=== PATIENT | female | born 1955 | race Caucasian/White ===

== ENCOUNTER 2021-03-26 02:28 | Inpatient (IN) ==
[2021-03-26] MEDS ORDERED: SODIUM CHLORIDE 0.9% 1000ML 1,000 ML IV ONE ×3 (02:51→03:59)
[2021-03-26] MEDS ORDERED: ACETAMINOPHEN 1,000 MG/100 ML VIAL IV STA (02:51)
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
[2021-03-26 03:13] LABS: Hematocrit (blood only) 47.8 % (37-47); Hemoglobin 16.3 g/dL (12.0-16.0); Immature Granulocytes # (auto) 0.01 K/uL (0.00-0.02); Immature Granulocytes % (auto) 0.1 %; Lymphocytes # (auto) 0.56 K/uL (1.2-3.4); Lymphocytes % (auto) 6.9 %; Mean Corpuscular Hemoglobin 31.4 pg (25-34); Mean Corpuscular Hgb Conc 34.1 g/dL (32-36); Mean Corpuscular Volume 92.1 fL (80-100); Mean Platelet Volume 10.2 fL (7.4-10.4); Monocytes # (auto) 0.23 K/uL (0.11-0.59); Monocytes % (auto) 2.8 %; Neutrophils # (auto) 7.33 K/uL (1.4-6.5); Neutrophils % (auto) 90.2 %; Platelet Count 186 K/uL (130-400); RDW Standard Deviation 44.1 fL (36.4-46.3); Red Blood Count 5.19 M/uL (4.2-5.4); White Blood Count 8.13 K/uL (4.8-10.8)
[2021-03-26 03:32] LABS: Alanine Aminotransferase 123 U/L (12-78); Albumin Level 3.6 gm/dl (3.4-5.0); Aspartate Aminotransferase 134 U/L (15-37); BUN Creatinine Ratio 17.6 (10-20); Bilirubin Direct 0.3 mg/dl (0-0.2); Blood Urea Nitrogen 18 mg/dl (7-18); Calcium 9.4 mg/dl (8.5-10.1); Carbon Dioxide 25 mmol/L (21-32); Chloride 101 mmol/L (98-107); Creatinine Clr Calc Pharmacy 76.6 ml/min; Est GFR (African American) 64.7 ml/min; Est GFR (Non-African American) 55.8 ml/min; Glucose 169 mg/dl (70-99); Lipase 96 U/L (73-393); Magnesium 2.2 mg/dl (1.8-2.4); Potassium 3.6 mmol/L (3.5-5.1); Sodium 134 mmol/L (136-145)
[2021-03-26 03:40] LABS: Alkaline Phosphatase 139 U/L (45-117); Bilirubin,Total 0.9 mg/dl (0.2-1); Total Protein 8.9 gm/dl (6.4-8.2); Troponin I < 0.015 ng/ml (0-0.045)
[2021-03-26] MEDS ORDERED: VANCOMYCIN HCL 2,500 MG in SODIUM CHLORIDE 0.9% 500 ML IV ONE (03:59)
[2021-03-26] MEDS ORDERED: PIPERACILLIN/TAZOBACTAM 4.5 GM/120 ML BAG IV ONE (03:59)
[2021-03-26] MEDS ORDERED: VANCOMYCIN CONSULT ACTIVE PRN ×2 (03:59→09:20)
[2021-03-26] MEDS ORDERED: PIPERACILL/TAZOBAC CONSULT ACTIVE PRN ×2 (03:59→09:20)
[2021-03-26 04:05] LABS: Lyme Ab IgG w/WB Rflx Negative (Negative); Lyme Ab IgM w/WB Rflx Negative (Negative)
[2021-03-26 04:11] LABS: Appearance Urine Cloudy (Clear); Bacteria Urine Automated Negative (Negative); Blood Urine 2+ (Negative); Color Urine Dark Yellow; Epithelial Cell Urine Auto >30 /lpf (0-5); Glucose Urine UA Negative (Negative); Ketones Urine 2+ (Negative); Leukocyte Esterase Urine Negative (Negative); Nitrite Urine Negative (Negative); Protein Urine 2+ (Negative); Specific Gravity Urine 1.031 (1.000-1.030); Urobilinogen Urine Negative (Negative); pH Urine 5.5 (4.5-7.5)
[2021-03-26 04:12] LABS: Bilirubin Urine 1+ (Negative)
[2021-03-26 04:25] LABS: Calcium Oxalate Crystals Urine Present (None Prsent); Mucus Urine Present (None Prsent)
[2021-03-26] MEDS ORDERED: OPTIRAY 320 125ml IV ONE (04:57)
--- NOTE | 2021-03-26 06:54 | History & Physical Report ---
Date of Service March 26, 2021 Assessment & Plan (1) Confusion: Plan: Confusion- Significantly improved in emergency department after 3 L of normal saline, Zosyn 4.5 g IV and beginning vancomycin IV (2) Sepsis: Plan: Sepsis, likely due to UTI- Follow urine culture sensitivities Follow blood culture and sensitivities Continue vancomycin IV and Zosyn IV empirically NSS + KCl 20 mEq 100 mils per hour x1 L Status post 3 L normal saline in the ED (3) Dehydration, moderate: Plan: IV fluids as above (4) Abnormal LFTs: Plan: CT notes hepatomegaly and splenomegaly. Differential including diabetes, obesity, hypercholesterolemia, other. No suggestion of acute hepatitis (5) Urinary tract infection: Plan: Follow urine culture and sensitivity as noted (6) Febrile illness, acute: Plan: Likely secondary to UTI. Continue to follow with hydration and antibiotics (7) Hepatomegaly: Plan: Noted on CT (8) Splenomegaly: Plan: Noted on CT History of Present Illness Chief Complaint: The patient is brought to the emergency department by police, after being found traveling [address], after she got lost en route from [place] to [place] Primary Care Provider: NO PCP The patient is a 66-year-old female with past medical history of 9 vaginal deliveries, and has not seen a physician in over 20 years. She is on no medications. She remembers traveling in the car, and thinking that she was very thirsty, and that there was ice on the other side of the car, but did not stop to get anything to drink. She is found by police traveling very slowly on the highway, appeared very confused, and was brought to the ED for assessment. In the emergency department, patient was significantly improved after receiving 3 L of normal saline, a completed dose of Zosyn, and a just beginning dose of vancomycin. She otherwise has no specific complaints other than headache. Allergies Allergy/AdvReac Type Severity Reaction Status Date / Time No Known Allergies Allergy Unverified 03/26/21 03:06 Home Medications Medication Instructions Recorded Confirmed Type ibuprofen 200 mg tablet 400 mg PO Q6H PRN 03/26/21 03/26/21 History Past Med/Surg History Social History Smoking Status: Never smoker Feels Safe at Home: Yes Review of Systems Review of Systems: The patient denies chest pain, palpitations, shortness of breath, dyspnea on exertion, cough, lower extremity swelling, sore throat, fevers, chills, sweats, weight change, fatigue, nausea, vomiting, diarrhea , constipation, abdominal pain, pelvic pain, blood in urine or stool, dysuria, urinary frequency or urgency, lightheadedness, dizziness, loss of consciousness, rash, abnormal bruising or bleeding, imbalance, focal or generalized weakness, numbness or tingling in arms or legs, generalized arthralgias or myalgias, back or neck pain, or night sweats. The review of systems is otherwise negative other than for that already noted above, and at least 10 systems have been reviewed. Physical Exam Physical Exam: The patient is awake, alert and oriented 3, well developed and well nourished, normocephalic and atraumatic, lying in bed and in no acute distress. HEENT--PERRL, EOMI, mucous membranes and oropharynx dry. Neck--supple. No JVD. No bruits. Thyroid normal, trachea midline, no adenopathy. Heart--normal S1 and S2. No murmurs, rubs or gallops. Lungs--clear bilaterally, no respiratory distress, no accessory muscle use. Abdomen--normal bowel sounds and soft. Nontender. Nondistended. Morbidly obese Extremities--no cyanosis or clubbing. No edema. Dermatologic--skin is mildly dry Neurologic--cranial nerves II through XII grossly intact. Rheumatologic-- range of motion limited by body habitus Psychiatric--normal affect. Results & Data Results & Data ([facility]) Vital Signs (Past 12 Hours) Vital Signs Temp Pulse Pulse Resp BP BP Pulse Ox 03/26/21 06:00 102 H 18 185/108 H 92 03/26/21 05:00 102 H 20 157/90 H 99 03/26/21 03:58 100.8 F H 112 H 18 163/98 H 94 03/26/21 02:44 103.3 F H 113 H 171/139 H 94 Laboratory Results Laboratory Results WBC 8.13 K/uL (4.8-10.8) 03/26/21 02:58 RBC 5.19 M/uL (4.2-5.4) 03/26/21 02:58 Hgb 16.3 g/dL (12.0-16.0) H 03/26/21 02:58 Hct 47.8 % (37-47) H 03/26/21 02:58 MCV 92.1 fL (80-100) 03/26/21 02:58 MCH 31.4 pg (25-34) 03/26/21 02:58 MCHC 34.1 g/dL (32-36) 03/26/21 02:58 RDW Std Deviation 44.1 fL (36.4-46.3) 03/26/21 02:58 RDW Coeff of Bharti 13.0 % (11.5-14.5) 03/26/21 02:58 Plt Count 186 K/uL (130-400) 03/26/21 02:58 MPV 10.2 fL (7.4-10.4) 03/26/21 02:58 Immature Gran % (Auto) 0.1 % 03/26/21 02:58 Neut % (Auto) 90.2 % 03/26/21 02:58 Lymph % (Auto) 6.9 % 03/26/21 02:58 Faulk % (Auto) 2.8 % 03/26/21 02:58 Eos % (Auto) 0.0 % 03/26/21 02:58 Baso % (Auto) 0.0 % 03/26/21 02:58 Neut # (Auto) 7.33 K/uL (1.4-6.5) H 03/26/21 02:58 Lymph # (Auto) 0.56 K/uL (1.2-3.4) L 03/26/21 02:58 Faulk # (Auto) 0.23 K/uL (0.11-0.59) 03/26/21 02:58 Eos # (Auto) 0.00 K/uL (0-0.5) 03/26/21 02:58 Baso # (Auto) 0.00 K/uL (0-0.2) 03/26/21 02:58 Immature Gran # (Auto) 0.01 K/uL (0.00-0.02) 03/26/21 02:58 Sodium 134 mmol/L (136-145) L 03/26/21 02:58 Potassium 3.6 mmol/L (3.5-5.1) 03/26/21 02:58 Chloride 101 mmol/L (98-107) 03/26/21 02:58 Carbon Dioxide 25 mmol/L (21-32) 03/26/21 02:58 Anion Gap 8.0 (3-11) 03/26/21 02:58 BUN 18 mg/dl (7-18) 03/26/21 02:58 Creatinine 1.03 mg/dl (0.6-1.2) 03/26/21 02:58 Est Cr Clr Drug Dosing 76.6 ml/min 03/26/21 02:58 Est GFR ( Amer) 64.7 ml/min 03/26/21 02:58 Est GFR (Non-Af Amer) 55.8 ml/min 03/26/21 02:58 BUN/Creatinine Ratio 17.6 (10-20) 03/26/21 02:58 Glucose 169 mg/dl (70-99) H 03/26/21 02:58 Lactate 1.9 mmol/L (0.4-2.0) 03/26/21 02:58 Calcium 9.4 mg/dl (8.5-10.1) 03/26/21 02:58 Magnesium 2.2 mg/dl (1.8-2.4) 03/26/21 02:58 Total Bilirubin 0.9 mg/dl (0.2-1) 03/26/21 02:58 Direct Bilirubin 0.3 mg/dl (0-0.2) H 03/26/21 02:58 AST 134 U/L (15-37) H 03/26/21 02:58 ALT 123 U/L (12-78) H 03/26/21 02:58 Alkaline Phosphatase 139 U/L (45-117) H 03/26/21 02:58 Troponin I < 0.015 ng/ml (0-0.045) 03/26/21 02:58 C-Reactive Protein 21.90 mg/dl (0-0.29) H 03/26/21 02:58 Total Protein 8.9 gm/dl (6.4-8.2) H 03/26/21 02:58 Albumin 3.6 gm/dl (3.4-5.0) 03/26/21 02:58 Lipase 96 U/L (73-393) 03/26/21 02:58 Procalcitonin 1.32 ng/ml (0-0.5) H 03/26/21 02:58 Urine Color Dark Yellow 03/26/21 03:55 Urine Appearance Cloudy (Clear) A 03/26/21 03:55 Urine pH 5.5 (4.5-7.5) 03/26/21 03:55 Ur Specific Rollins 1.031 (1.000-1.030) H 03/26/21 03:55 Urine Protein 2+ (Negative) H 03/26/21 03:55 Urine Glucose (UA) Negative (Negative) 03/26/21 03:55 Urine Ketones 2+ (Negative) H 03/26/21 03:55 Urine Blood 2+ (Negative) H 03/26/21 03:55 Urine Nitrite Negative (Negative) 03/26/21 03:55 Urine Bilirubin 1+ (Negative) H 03/26/21 03:55 Urine Urobilinogen Negative (Negative) 03/26/21 03:55 Ur Leukocyte Esterase Negative (Negative) 03/26/21 03:55 Urine WBC (Auto) 5-10 /hpf (0-5) H 03/26/21 03:55 Urine RBC (Auto) 5-10 /hpf (0-4) H 03/26/21 03:55 U Hyaline Cast (Auto) 10-30 /lpf (0-5) H 03/26/21 03:55 U Epithel Cells (Auto) >30 /lpf (0-5) H 03/26/21 03:55 Urine Bacteria (Auto) Negative (Negative) 03/26/21 03:55 Ur Renal Epithelial Cell Not Reportable 03/26/21 03:55 Calcium Oxalate Crystal Present (None Prsent) A 03/26/21 03:55 Granular Casts 1-5 /lpf (0) H 03/26/21 03:55 Urine Mucus Present (None Prsent) A 03/26/21 03:55 Anaplasma Smear See Comment 03/26/21 02:58 Lyme Disease IgG Ab Negative (Negative) 03/26/21 02:58 Lyme Disease IgM Ab Negative (Negative) 03/26/21 02:58 COVID-19 Eval Order Covid19 at [facility] 03/26/21 03:13 SARS-CoV-2 (PCR) NEGATIVE (Negative) 03/26/21 03:13 Diagnostic Findings [facility] Patient: NBA ROSA (Female) : 51 Status: ER Date: 03/26/21 04:57 Room #: History: ELEVATED LFT'S SEPSIS Slices: 1005 Priors: Tech: Claudio Wright @ [phone] Exams: CT ABDOMEN & PELVIS With Contrast Contrast: IV Amt: 119 ML OPTIRAY 320 Accession Numbers: [id number] Referring Physician: REFERRED SELF Preliminary Findings Only See Final Report For Complete Findings CT ABDOMEN & PELVIS With Contrast: Hepatomegaly. Cholecystectomy. Pancreas unremarkable. Splenomegaly. No renal or ureteral stones. Status post hysterectomy. No acute abnormality along the GI tract. Normal appendix. Colonic diverticulosis without diverticulitis. Fat-containing umbilical hernia. Radiologist: Sav Castillo MD Study ready at 05:07 and initial results transmitted at 06:07 *This report constitutes a preliminary interpretation only. Non-acute findings felt to be unrelated to the clinical presentation may not be discussed in this report. The study will be interpreted and a final report will be generated by the local Radiologist the following shift. To reach the hospital radiology department call [phone]. If a discrepancy is found between the preliminary and final interpretations of this study, please notify us via our Client Portal at [email or web address], under QA Exams.You can also fax this report with a description of the discrepancy, or include the final report, to our daytime fax number [phone].If faxing, please indicate the severity of discrepancy using one of the following categories: [ ] 1 - Agree/Informational [ ] 2 - Unlikely to Affect Management [ ] 3 - Possible Eventual Change of Management [ ] 4 - Probable Immediate Change of Management For all other patient related information, please fax us at [phone]. [id number] Code Status & VTE Plan Code Status Full code VTE Prophylaxis Plan VTE Prophylaxis will be ordered: Yes PG Care Time/CCT Total # of Minutes Spent Total Time Spent with Patient: Total time spent is greater than 50% in coordination of care (as documented) at patient's floor/unit and/or counseling patient: Coding Level of Care Code 59222 Initial Inpt Care Lvl 3 Diagnoses Confusion R41.0 Sepsis A41.9 Dehydration, moderate E86.0 Abnormal LFTs R94.5 Urinary tract infection N39.0 Febrile illness, acute R50.9 Hepatomegaly R16.0 Splenomegaly R16.1
--- NOTE | 2021-03-26 07:39 | CT Scan Report ---
CT OF THE HEAD WITHOUT CONTRAST CLINICAL HISTORY: Confusion. COMPARISON STUDY: No previous studies for comparison. CT DOSE: 614.27 mGy.cm TECHNIQUE: Helical axial images of the head were obtained without IV contrast. Automated exposure con trol was utilized for the study. A dose lowering technique was utilized adhering to the principles o f ALARA. FINDINGS: No acute intracranial hemorrhage, midline shift or mass effect is present. Ventricular syst em is normal. Basal cisterns are patent. There are no extra-axial collections. Several white matter h ypodensity suggests small vessel disease. There are no findings to suggest acute dural sinus thrombos is or acute territorial infarct. There are no significant calvarial abnormalities. There is a small a mount of fluid within the right mastoid air cells. IMPRESSION: No acute intracranial findings. ACT 112: Negative or not required by law. Electronically signed by: Lacho Higginbotham M.D. 03/26/2021 7:38 AM
--- NOTE | 2021-03-26 08:48 | Electrocardiogram Report ---
Test Reason : Blood Pressure : / mmHG Vent. Rate : 126 BPM Atrial Rate : 126 BPM P-R Int : 152 ms QRS Dur : 094 ms QT Int : 314 ms P-R-T Axes : 048 168 011 degrees QTc Int : 454 ms Poor data quality, interpretation may be adversely affected Sinus tachycardia Left atrial enlargement Right axis deviation Nonspecific T wave abnormality Inferior leads Abnormal ECG No previous ECGs available Confirmed by Devante Wheeler ([id number]) on 03/26/2021 8:47:45 AM Referred By: REFERRED SELF Confirmed By:Devante Wheeler
[2021-03-26] MEDS ORDERED: GLUCOSE 10 TABS/TUBE PO PRN (09:20)
[2021-03-26] MEDS ORDERED: DEXTROSE 50% 50 ML SYRINGE IV PRN (09:20)
[2021-03-26] MEDS ORDERED: ONDANSETRON INJ 2 MG/ML 2 ML VIAL IV PRN (09:20)
[2021-03-26] MEDS ORDERED: GLUCAGON FOR INJ 1 MG VIAL SQ PRN (09:20)
[2021-03-26] MEDS ORDERED: GLUCOSE 40% GEL 15 GM TUBE PO PRN (09:20)
[2021-03-26] MEDS ORDERED: CARBOHYDRATES FOR HYPOGLYCEMIA PO PRN (09:20)
--- NOTE | 2021-03-26 09:32 | XRay Report ---
XR chest 1V portable CLINICAL HISTORY: sepsis COMPARISON STUDY: No previous studies for comparison. FINDINGS: No pneumothorax. No pleural effusion. Reticular opacities are seen at the right lower lung and could represent atelectasis or infiltrates. Cardiomediastinal silhouette is within normal limits in size. Mild pulmonary vascular congestion. Aorta is tortuous.. Osseous structures: Osteopenia. Degenerative changes of bilateral shoulders and spine. IMPRESSION: 1. Atelectasis or infiltrate at the right lower lung. 2. Mild pulmonary vascular congestion. ACT 112: Negative or not required by law. The above report was generated using voice recognition software. It may contain grammatical, syntax o r spelling errors. Electronically signed by: Mala Adame DO 03/26/2021 9:30 AM
--- NOTE | 2021-03-26 09:41 | CT Scan Report ---
CT abd pelvis IV con only CLINICAL HISTORY: sepsis, elevated LFTs COMPARISON STUDY: None. TECHNIQUE: A dose lowering technique was utilized adhering to the principles of ALARA. CT DOSE: 2486.86 mGy.cm FINDINGS: Lower chest: Few linear densities are seen at dependent portions of bilateral lower lobes and could r epresent atelectasis or scarring.. Liver: Liver is prominent with diffuse decrease in attenuation of its parenchyma which could represen t hepatic steatosis. No focal liver lesions or intrahepatic biliary dilatation is seen Gallbladder: Is surgically absent. Spleen: Normal in size and attenuation. Pancreas: Unremarkable. Adrenal glands: Unremarkable. Kidneys: There is symmetric renal cortical enhancement. The kidneys are normal in size without hydron ephrosis.Few small renal cysts are seen within left kidney. Pelvic viscera: Urinary bladder is partially decompressed shows normal appearance. Uterus is surgical ly absent. Bowel: Bowel loops are nondilated. Appendix is not well seen, probably surgically absent. Diverticulo sis of sigmoid colon is seen without evidence of diverticulitis. Peritoneum: There is no intraperitoneal free air or abdominal ascites. Vasculature: The abdominal aorta is normal in course and caliber. Adenopathy: None. Skeletal structures: Mild osteopenia and degenerative changes of the spine. Mild anterolisthesis of L 4 on L5. IMPRESSION: 1. Hepatic steatosis. Prominent liver. 2. Nondilated loops of bowel. No acute intra-abdominal process. 3. Diverticulosis without diverticulitis. 4. Status post cholecystectomy and hysterectomy. ACT 112: Negative or not required by law. The above report was generated using voice recognition software. It may contain grammatical, syntax o r spelling errors. Electronically signed by: Mala Adame DO 03/26/2021 9:39 AM
[2021-03-26] MEDS ORDERED: NSS + 20MEQ KCL 20 MEQ/1,000 ML BAG IV SCH (09:45)
--- NOTE | 2021-03-26 10:27 | Pharmacy Report ---
Pharmacy Abx Dose Short Note - Date of Service March 26, 2021 - Assessment & Plan Assessment 66 year old F started on vancomycin and zosyn empirically for confusion/possible UTI. Per notes, patient has not been seen by PCP in over 20 years, no medications at home. Found very confused on admission, improving after given fluids in ER. Febrile on admission and elevated procalcitonin noted. Cultures pending currently. Plan Vancomycin * Vancomycin 2500 mg x 1 given in ER (~18 mg/kg/dose) * Plan to start vancomycin 1500 mg iv q 12 hr to achieve estimated trough ~15 mcg/ml (~10 mg/kg/dose). A less than traditional dosing selected due to increased risk of accumulation with vancomycin d/t BMI >35 kg/m2 * Plan to check trough likely before steady state to ensure stable Zosyn * 4.5 gm iv q 8 hr - no change for CrCl >20 Pharmacy will continue to follow and will adjust dose/frequency as necessary. Thank you.
[2021-03-26] MEDS: PIPERACILLIN/TAZOBACTAM 4.5 GM in DEXTROSE 5% 100 ML IV SCH ×2 (10:35→18:12)
[2021-03-26] MEDS: INSULIN ASPART 100 UNITS/ML 3 ML PEN SC SCH ×4 (10:39→20:30)
[2021-03-26] MEDS: ACETAMINOPHEN 325 MG TAB PO PRN (13:19)
[2021-03-26] MEDS: VANCOMYCIN HCL 1,500 MG in SODIUM CHLORIDE 0.9% 500 ML IV SCH (16:30)
[2021-03-27] MEDS: PIPERACILLIN/TAZOBACTAM 4.5 GM in DEXTROSE 5% 100 ML IV SCH ×3 (01:09→18:17)
[2021-03-27] MEDS: VANCOMYCIN HCL 1,500 MG in SODIUM CHLORIDE 0.9% 500 ML IV SCH ×2 (04:04→16:42)
[2021-03-27 07:59] LABS: Estimated Average Glucose 117 mg/dl; Hemoglobin A1C 5.7 % (4.5-5.6)
[2021-03-27 08:04] LABS: Basophils # (auto) 0.02 K/uL (0-0.2); Basophils % (auto) 0.5 %; Eosinophils # (auto) 0.03 K/uL (0-0.5); Eosinophils % (auto) 0.8 %; Hematocrit (blood only) 37.7 % (37-47); Hemoglobin 12.6 g/dL (12.0-16.0); Lymphocytes # (auto) 1.27 K/uL (1.2-3.4); Lymphocytes % (auto) 32.1 %; Mean Corpuscular Hemoglobin 30.7 pg (25-34); Mean Corpuscular Hgb Conc 33.4 g/dL (32-36); Mean Platelet Volume 10.2 fL (7.4-10.4); Monocytes % (auto) 15.2 %; Neutrophils # (auto) 2.04 K/uL (1.4-6.5); Neutrophils % (auto) 51.4 %; Platelet Count 167 K/uL (130-400); RDW Coefficient of Variation 13.3 % (11.5-14.5); RDW Standard Deviation 45.2 fL (36.4-46.3); White Blood Count 3.96 K/uL (4.8-10.8)
[2021-03-27] MEDS: INSULIN ASPART 100 UNITS/ML 3 ML PEN SC SCH ×4 (08:05→20:27)
[2021-03-27 08:07] LABS: Albumin Level 2.6 gm/dl (3.4-5.0); BUN Creatinine Ratio 18.8 (10-20); Calcium 8.2 mg/dl (8.5-10.1); Creatinine Clr Calc Pharmacy 139.6 ml/min; Est GFR (African American) 111.7 ml/min; Est GFR (Non-African American) 96.4 ml/min; Magnesium 2.2 mg/dl (1.8-2.4); Potassium 2.9 mmol/L (3.5-5.1)
[2021-03-27 08:12] LABS: Albumin Globulin Ratio 0.7 (0.9-2); Bilirubin,Total 0.8 mg/dl (0.2-1); Globulin 3.8 gm/dl (2.5-4.0); Total Protein 6.4 gm/dl (6.4-8.2)
[2021-03-27] MEDS: POTASSIUM CHLORIDE / WTR 10 MEQ/100 ML PLCT IV SCH ×4 (09:24→13:34)
[2021-03-27] MEDS ORDERED: VANCOMYCIN TROUGH ONE (15:30)
--- NOTE | 2021-03-27 15:49 | Hospitalist Progress Note ---
Date of Service March 27, 2021 Assessment & Plan (1) Confusion: Plan: Confusion- She can remember that she was traveling in [place] and was heading to [place] the evening before admission and after that she cannot remember anything that she was taken to the hospital but he can remember the conversation with the police. She has been on intravenous fluid and intravenous Zosyn and vancomycin for possible infection UA is suggestive of infection CT of the head has been negative Her confusion seems to be completely resolved (2) Sepsis: Plan: Possible sepsis, likely secondary to UTI Did not meet all the criteria of sepsis Received adequate intravenous fluid Urine and blood cultures are pending She has been on intravenous Zosyn and vancomycin empirically We will continue both until you get the blood culture report back Clinically much better (3) Dehydration, moderate: Plan: IV fluids as above Received intravenous fluid with electrolyte replacement Potassium remains low and is supplemented Monitor PRP and electrolytes (4) Abnormal LFTs: Plan: CT notes hepatomegaly and splenomegaly. Differential including diabetes, obesity, hypercholesterolemia, other. No suggestion of acute hepatitis Likely secondary to hepatic steatosis We will monitor LFTs (5) Urinary tract infection: Plan: Follow urine culture and sensitivity as noted (6) Febrile illness, acute: Plan: Likely secondary to UTI. Continue to follow with hydration and antibiotics (7) Hepatomegaly: Plan: Noted on CT (8) Splenomegaly: Plan: Noted on CT Plan: We will get PT and OT evaluation Await urine and blood cultures determine the antibiotic and the duration Like to be discharged tomorrow or day after We will have [facility] PCP for follow-up at discharge Admission and Anticipated Discharge Date Admission Date: March 26, 2021 Subjective 03/27/2021 The patient was seen and examined in telemetry unit She was admitted yesterday with acute confusion and noted to have UTI She has been feeling much better since admission and her confusion is resolved Denies any significant symptoms today Review of Systems Review of Systems: All systems reviewed and are unremarkable except as noted below Neurologic: Alert, awake and oriented x3. Generally weak but no focal sensory and motor deficit appreciated Physical Exam Physical Exam: Sitting at the edge of the bed without any distress Constitutional: well developed, well nourished and + obese; not ill appearing Eyes: PERRL, conjunctivae normal, anicteric sclerae ENMT: external ear and nose normal, oropharynx normal Neck: trachea midline, no thyromegaly Respiratory: no respiratory distress and no cough Auscultation: lungs clear to auscultation bilaterally Cardiovascular: Rate/Rhythm: regular rate and regular rhythm; not tachycardic Heart Sounds: normal S1 and normal S2; no murmur Extremities: + edema (Chronic edema bilaterally with component of lymphedema) Gastrointestinal (Abdomen): normal bowel sounds, soft, nontender, no hepatosplenomegaly Musculoskeletal: No acute arthritis in any joint Neurologic: Alert, awake and oriented x3 Psychiatric: A+Ox3, euthymic affect Lymphatic: no cervical or axillary lymphadenopathy Results & Data Results & Data ([facility]) Vital Signs (Past 12 Hours) Vital Signs Temp Pulse Resp BP Pulse Ox 03/27/21 15:09 36.6 C 75 17 159/93 H 94 03/27/21 11:42 36.6 C 78 20 163/86 H 94 03/27/21 07:27 36.7 C 74 20 148/86 H 93 Laboratory Results Short CBC 03/27/21 Range/Units 06:51 WBC 3.96 L (4.8-10.8) K/uL Hgb 12.6 D (12.0-16.0) g/dL Hct 37.7 (37-47) % Plt Count 167 (130-400) K/uL BMP 03/27/21 06:51 Sodium 139 Potassium 2.9 L D Chloride 108 H Carbon Dioxide 25 BUN 10 D Creatinine 0.55 L D Glucose 116 H Calcium 8.2 L Cardiac Enzymes 03/26/21 03/27/21 03/27/21 Range/Units 17:55 01:06 09:58 Troponin I < 0.015 < 0.015 < 0.015 (0-0.045) ng/ml Liver Function 03/27/21 Range/Units 06:51 Total Bilirubin 0.8 (0.2-1) mg/dl AST 84 H (15-37) U/L ALT 93 H (12-78) U/L Alkaline Phosphatase 98 (45-117) U/L Albumin 2.6 L (3.4-5.0) gm/dl Medications Administered Current Inpatient Medications Acetaminophen (Acetaminophen 325 Mg Tab) 650 mg PO Q4H PRN PRN Reason: Pain or Fever Stop: 04/25/21 09:19 Last Admin: 03/26/21 13:19 Dose: 650 mg Documented by: Dextrose (Dextrose 50% 50 Ml Syringe) 25 - 50 ml IV UD PRN; Protocol PRN Reason: Hypoglycemia Protocol Stop: 04/25/21 09:19 Glucagon (Glucagon For Inj 1 Mg Vial) 1 mg SQ UD PRN; Protocol PRN Reason: Hypoglycemia Protocol Stop: 04/25/21 09:19 Glucose (Glucose 10 Tabs/Tube) 4 - 8 tabs PO UD PRN; Protocol PRN Reason: Hypoglycemia Protocol Stop: 04/25/21 09:19 Glucose (Glucose 40% Gel 15 Gm Tube) 15 - 30 gm PO UD PRN; Protocol PRN Reason: Hypoglycemia Protocol Stop: 04/25/21 09:19 Vancomycin HCl 1,500 mg/ (Sodium Chloride) 530 mls @ 200 mls/hr IV Q12H BEHZAD Stop: 03/28/21 15:59 Last Infusion: 03/27/21 08:20 Dose: Infused Documented by: Piperacillin Sod/Tazobactam (Sod 4.5 gm/ Dextrose) 120 mls @ 30 mls/hr IV Q8H BEHZAD; Protocol Stop: 03/28/21 10:29 Last Infusion: 03/27/21 13:34 Dose: Infused Documented by: Insulin Aspart (Insulin Aspart 100 Units/Ml 3 Ml Pen) 0 units SC ACHS BEHZAD Stop: 04/25/21 09:19 Last Admin: 03/27/21 11:59 Dose: Not Given Documented by: Miscellaneous (Carbohydrates For Hypoglycemia ) 15 - 30 gm PO UD PRN PRN Reason: Hypoglycemia Protocol Stop: 04/25/21 09:19 Miscellaneous Information (Piperacill/Tazobac Consult Active) 1 ea N/A UD PRN PRN Reason: Consult Stop: 04/25/21 09:19 Miscellaneous Information (Vancomycin Consult Active) 1 ea N/A UD PRN PRN Reason: Consult Stop: 04/25/21 09:19 Ondansetron HCl (Ondansetron Inj 2 Mg/Ml 2 Ml Vial) 4 mg IV Q6H PRN PRN Reason: Nausea Stop: 04/25/21 09:19
--- NOTE | 2021-03-27 20:48 | Pharmacy Report ---
Pharmacy Abx Dose Short Note - Date of Service March 27, 2021 - Assessment & Plan Assessment 66 year old F receiving vancomycin and zosyn for treatment of confusion/possible UTI Day # 2 of antimicrobial therapy. Plan Vancomycin * Trough level of 12 mcg/mL is subtherapeutic * Change to 1500 mg IV every 10 hours * Goal trough level: 15 to 20 mcg/mL * Trough level will be ordered if vancomycin is continued past 48 hours Zosyn * 4.5 gm iv q 8 hr - no change for CrCl >20 Pharmacy will continue to follow and will adjust dose/frequency as necessary. Thank you.
[2021-03-28] MEDS ORDERED: VANCOMYCIN HCL 1,500 MG in SODIUM CHLORIDE 0.9% 500 ML IV SCH
[2021-03-28] MEDS: PIPERACILLIN/TAZOBACTAM 4.5 GM in DEXTROSE 5% 100 ML IV SCH ×3 (00:59→17:26)
[2021-03-28] MEDS: VANCOMYCIN HCL 1,500 MG in SODIUM CHLORIDE 0.9% 500 ML IV SCH ×3 (00:59→21:20)
[2021-03-28 07:33] LABS: Hematocrit (blood only) 39.5 % (37-47); Hemoglobin 13.4 g/dL (12.0-16.0); Mean Corpuscular Hemoglobin 30.7 pg (25-34); Mean Corpuscular Hgb Conc 33.9 g/dL (32-36); Mean Corpuscular Volume 90.4 fL (80-100); Mean Platelet Volume 10.2 fL (7.4-10.4); Platelet Count 207 K/uL (130-400); RDW Coefficient of Variation 12.9 % (11.5-14.5); Red Blood Count 4.37 M/uL (4.2-5.4); White Blood Count 3.96 K/uL (4.8-10.8)
[2021-03-28 08:02] LABS: Basophils # (auto) 0.02 K/uL (0-0.2); Basophils % (auto) 0.5 %; Eosinophils # (auto) 0.09 K/uL (0-0.5); Eosinophils % (auto) 2.3 %; Lymphocytes # (auto) 1.99 K/uL (1.2-3.4); Lymphocytes % (auto) 50.3 %; Monocytes # (auto) 0.53 K/uL (0.11-0.59); Monocytes % (auto) 13.4 %; Neutrophils # (auto) 1.33 K/uL (1.4-6.5); Neutrophils % (auto) 33.5 %
[2021-03-28 08:11] LABS: Albumin Level 2.8 gm/dl (3.4-5.0); BUN Creatinine Ratio 17.7 (10-20); Calcium 8.7 mg/dl (8.5-10.1); Creatinine Clr Calc Pharmacy 134.8 ml/min; Est GFR (African American) 110.4 ml/min; Est GFR (Non-African American) 95.3 ml/min; Magnesium 2.1 mg/dl (1.8-2.4); Potassium 3.3 mmol/L (3.5-5.1)
[2021-03-28 08:14] LABS: Albumin Globulin Ratio 0.7 (0.9-2); Bilirubin,Total 0.7 mg/dl (0.2-1); Globulin 4.2 gm/dl (2.5-4.0); Phosphorus 2.9 mg/dl (2.5-4.9)
[2021-03-28] MEDS: INSULIN ASPART 100 UNITS/ML 3 ML PEN SC SCH ×4 (08:14→21:14)
[2021-03-28] MEDS ORDERED: POTASSIUM CHLORIDE CRTAB 20 MEQ TABCR PO STA (09:13)
[2021-03-28] MEDS ORDERED: POTASSIUM CHLORIDE 10 MEQ TABCR PO STA (09:13)
--- NOTE | 2021-03-28 16:21 | Hospitalist Progress Note ---
Date of Service March 28, 2021 Assessment & Plan (1) Confusion: Plan: Confusion- She can remember that she was traveling [place] 81 and was heading [place] 80 the evening before admission and after that she cannot remember anything that she was taken to the hospital but he can remember the conversation with the police. She has been on intravenous fluid and intravenous Zosyn and vancomycin for possible infection UA is suggestive of infection CT of the head has been negative Her confusion seems to be completely resolved (2) Sepsis: Plan: Possible sepsis, likely secondary to UTI Did not meet all the criteria of sepsis Received adequate intravenous fluid Urine and blood cultures are pending She has been on intravenous Zosyn and vancomycin empirically We will continue both until you get the blood culture report back Clinically much better (3) Dehydration, moderate: Plan: IV fluids as above Received intravenous fluid with electrolyte replacement Potassium remains low and is supplemented Monitor PRP and electrolytes (4) Abnormal LFTs: Plan: CT notes hepatomegaly and splenomegaly. Differential including diabetes, obesity, hypercholesterolemia, other. No suggestion of acute hepatitis Likely secondary to hepatic steatosis We will monitor LFTs (5) Urinary tract infection: Plan: Follow urine culture and sensitivity as noted (6) Febrile illness, acute: Plan: Likely secondary to UTI. Continue to follow with hydration and antibiotics (7) Hepatomegaly: Plan: Noted on CT (8) Splenomegaly: Plan: Noted on CT Plan: We will get PT and OT evaluation Await urine and blood cultures determine the antibiotic and the duration Like to be discharged tomorrow or day after We will have [facility] PCP for follow-up at discharge Admission and Anticipated Discharge Date Admission Date: March 26, 2021 Subjective Pt was seen and examined Lying in bed with no distress Denies any chest pain, palpitation, dizziness and fever Physical Exam Physical Exam: Physical Exam: Sitting at the edge of the bed without any distress Constitutional: well developed, well nourished and + obese; not ill appearing Eyes: PERRL, conjunctivae normal, anicteric sclerae ENMT: external ear and nose normal, oropharynx normal Neck: trachea midline, no thyromegaly Respiratory: no respiratory distress and no cough Auscultation: lungs clear to auscultation bilaterally Cardiovascular: Rate/Rhythm: regular rate and regular rhythm; not tachycardic Heart Sounds: normal S1 and normal S2; no murmur Extremities: + edema (Chronic edema bilaterally with component of lymphedema) Gastrointestinal (Abdomen): normal bowel sounds, soft, nontender, no hepatosplenomegaly Musculoskeletal: No acute arthritis in any joint Neurologic: Alert, awake and oriented x3 Psychiatric: A+Ox3, euthymic affect Lymphatic: no cervical or axillary lymphadenopathy Results & Data Results & Data ([facility]) Vital Signs (Past 12 Hours) Vital Signs Temp Pulse Resp BP Pulse Ox 03/28/21 15:05 36.6 C 72 18 166/102 H 94 03/28/21 11:40 36.6 C 73 18 167/103 H 95 03/28/21 07:50 36.8 C 73 20 185/90 H 93
[2021-03-28] MEDS: ACETAMINOPHEN 325 MG TAB PO PRN (21:19)
[2021-03-29] MEDS: PIPERACILLIN/TAZOBACTAM 4.5 GM in DEXTROSE 5% 100 ML IV SCH ×2 (02:07→08:59)
[2021-03-29] MEDS ORDERED: VANCOMYCIN TROUGH ONE (07:30)
[2021-03-29 07:36] LABS: Basophils # (auto) 0.02 K/uL (0-0.2); Basophils % (auto) 0.4 %; Eosinophils # (auto) 0.14 K/uL (0-0.5); Hematocrit (blood only) 38.6 % (37-47); Hemoglobin 12.9 g/dL (12.0-16.0); Immature Granulocytes # (auto) 0.01 K/uL (0.00-0.02); Immature Granulocytes % (auto) 0.2 %; Lymphocytes # (auto) 1.94 K/uL (1.2-3.4); Lymphocytes % (auto) 41.1 %; Mean Corpuscular Hemoglobin 30.2 pg (25-34); Mean Corpuscular Hgb Conc 33.4 g/dL (32-36); Mean Corpuscular Volume 90.4 fL (80-100); Mean Platelet Volume 9.8 fL (7.4-10.4); Monocytes # (auto) 0.45 K/uL (0.11-0.59); Monocytes % (auto) 9.5 %; Neutrophils # (auto) 2.16 K/uL (1.4-6.5); Neutrophils % (auto) 45.8 %; Platelet Count 246 K/uL (130-400); RDW Standard Deviation 42.9 fL (36.4-46.3); Red Blood Count 4.27 M/uL (4.2-5.4); White Blood Count 4.72 K/uL (4.8-10.8)
[2021-03-29 08:37] LABS: Albumin Globulin Ratio 0.8 (0.9-2); BUN Creatinine Ratio 18.3 (10-20); Bilirubin,Total 0.7 mg/dl (0.2-1); Calcium 8.7 mg/dl (8.5-10.1); Creatinine Clr Calc Pharmacy 137.1 ml/min; Est GFR (Non-African American) 95.8 ml/min; Globulin 3.8 gm/dl (2.5-4.0); Magnesium 2.1 mg/dl (1.8-2.4); Potassium 3.2 mmol/L (3.5-5.1); Total Protein 6.8 gm/dl (6.4-8.2)
[2021-03-29] MEDS: INSULIN ASPART 100 UNITS/ML 3 ML PEN SC SCH ×4 (08:59→21:23)
[2021-03-29] MEDS: VANCOMYCIN HCL 1,500 MG in SODIUM CHLORIDE 0.9% 500 ML IV SCH ×2 (09:03→17:43)
[2021-03-29] MEDS ORDERED: POTASSIUM CHLORIDE CRTAB 20 MEQ TABCR PO STA (09:30)
--- NOTE | 2021-03-29 12:26 | Pharmacy Report ---
Pharmacy Abx Dose Short Note - Date of Service March 29, 2021 - Assessment & Plan Assessment 66 year old F receiving vancomycin for treatment of possible gram-positive cocci bacteremia (vs. contamination). Pertinent microbiologic data includes: 1 of 4 blood cultures currently growing gram-positive cocci in clusters. ID consulted yesterday - awaiting recs. Zosyn discontinued in meantime, vancomycin monotherapy at this time. Day #4 of antimicrobial therapy. Plan Vancomycin * Trough level of 17.5 mcg/mL is therapeutic * Continue dose of 1500 mg IV every 10 hours * Goal trough level for bacteremia (unknown source) : 15 to 20 mcg/mL * Trough level ordered for: 03/31/21 Pharmacy will continue to follow and will adjust dose/frequency as necessary. Thank you.
--- NOTE | 2021-03-29 19:38 | Hospitalist Progress Note ---
Date of Service March 29, 2021 Assessment & Plan (1) Confusion: Plan: Confusion- She can remember that she was traveling in 81 and was heading to 80 the evening before admission and after that she cannot remember anything that she was taken to the hospital but he can remember the conversation with the police. She has been on intravenous fluid and intravenous Zosyn and vancomycin for possible infection UA is suggestive of infection CT of the head has been negative Her confusion seems to be completely resolved (2) Sepsis: Plan: Possible sepsis, likely secondary to UTI Did not meet all the criteria of sepsis Received adequate intravenous fluid Urine and blood cultures are pending She has been on intravenous Zosyn and vancomycin empirically We will continue both until you get the blood culture report back Clinically much better (3) Dehydration, moderate: Plan: IV fluids as above Received intravenous fluid with electrolyte replacement Potassium remains low and is supplemented Monitor PRP and electrolytes (4) Abnormal LFTs: Plan: CT notes hepatomegaly and splenomegaly. Differential including diabetes, obesity, hypercholesterolemia, other. No suggestion of acute hepatitis Likely secondary to hepatic steatosis We will monitor LFTs (5) Urinary tract infection: Plan: Follow urine culture and sensitivity as noted (6) Febrile illness, acute: Plan: Likely secondary to UTI. Continue to follow with hydration and antibiotics (7) Hepatomegaly: Plan: Noted on CT (8) Splenomegaly: Plan: Noted on CT Plan: We will get PT and OT evaluation Await urine and blood cultures determine the antibiotic and the duration Like to be discharged tomorrow or day after We will have [facility] PCP for follow-up at discharge Admission and Anticipated Discharge Date Admission Date: March 26, 2021 Subjective Pt was seen and examined Lying in bed with no distress Denies any chest pain, palpitation, dizziness and fever Physical Exam Physical Exam: Physical Exam: Sitting at the edge of the bed without any distress Constitutional: well developed, well nourished and + obese; not ill appearing Eyes: PERRL, conjunctivae normal, anicteric sclerae ENMT: external ear and nose normal, oropharynx normal Neck: trachea midline, no thyromegaly Respiratory: no respiratory distress and no cough Auscultation: lungs clear to auscultation bilaterally Cardiovascular: Rate/Rhythm: regular rate and regular rhythm; not tachycardic Heart Sounds: normal S1 and normal S2; no murmur Extremities: + edema (Chronic edema bilaterally with component of lymphedema) Gastrointestinal (Abdomen): normal bowel sounds, soft, nontender, no hepatosplenomegaly Musculoskeletal: No acute arthritis in any joint Neurologic: Alert, awake and oriented x3 Psychiatric: A+Ox3, euthymic affect Lymphatic: no cervical or axillary lymphadenopathy Results & Data Results & Data ([facility]) Vital Signs (Past 12 Hours) Vital Signs Temp Pulse Resp BP Pulse Ox 03/29/21 17:16 36.9 C 82 18 141/63 H 96 03/29/21 12:13 36.9 C 74 18 121/63 95
[2021-03-30] MEDS: VANCOMYCIN HCL 1,500 MG in SODIUM CHLORIDE 0.9% 500 ML IV SCH (03:11)
[2021-03-30 06:58] LABS: Creatinine Clr Calc Pharmacy 163.3 ml/min; Est GFR (African American) 117.6 ml/min; Est GFR (Non-African American) 101.5 ml/min
[2021-03-30] MEDS: ACETAMINOPHEN 325 MG TAB PO PRN (08:12)
[2021-03-30] MEDS: INSULIN ASPART 100 UNITS/ML 3 ML PEN SC SCH ×2 (08:15→11:41)
[2021-03-30 11:53] VITALS: PULSE 72; TEMP 97.9; O2SAT 95
[2021-03-30 16:12] VITALS: BP 143/79
[2021-03-31] MEDS ORDERED: VANCOMYCIN TROUGH ONE (09:30)
--- NOTE | 2021-04-05 02:00 | Discharge Summary ---
Date of Service March 30, 2021 Admission HPI Per Admitting Provider The patient is a 66-year-old female with past medical history of 9 vaginal deliveries, and has not seen a physician in over 20 years. She is on no medications. She remembers traveling in the car, and thinking that she was very thirsty, and that there was ice on the other side of the car, but did not stop to get anything to drink. She is found by police [place] very slowly on the highway, appeared very confused, and was brought to the ED for assessment. In the emergency department, patient was significantly improved after receiving 3 L of normal saline, a completed dose of Zosyn, and a just beginning dose of vancomycin. She otherwise has no specific complaints other than headache. Admission Exam Per Admitting Provider The patient is awake, alert and oriented 3, well developed and well nourished, normocephalic and atraumatic, lying in bed and in no acute distress. HEENT--PERRL, EOMI, mucous membranes and oropharynx dry. Neck--supple. No JVD. No bruits. Thyroid normal, trachea midline, no adenopathy. Heart--normal S1 and S2. No murmurs, rubs or gallops. Lungs--clear bilaterally, no respiratory distress, no accessory muscle use. Abdomen--normal bowel sounds and soft. Nontender. Nondistended. Morbidly obese Extremities--no cyanosis or clubbing. No edema. Dermatologic--skin is mildly dry Neurologic--cranial nerves II through XII grossly intact. Rheumatologic-- range of motion limited by body habitus Psychiatric--normal affect. Principal Diagnosis Confusion Hypertension Discharge Exam Physical Exam: Sitting at the edge of the bed without any distress Constitutional: well developed, well nourished and + obese; not ill appearing Eyes: PERRL, conjunctivae normal, anicteric sclerae ENMT: external ear and nose normal, oropharynx normal Neck: trachea midline, no thyromegaly Respiratory: no respiratory distress and no cough Auscultation: lungs clear to auscultation bilaterally Cardiovascular: regular rate and regular rhythm; not tachycardic Heart Sounds: normal S1 and normal S2; no murmur Extremities: + edema (Chronic edema bilaterally with component of lymphedema) Gastrointestinal: normal bowel sounds, soft, nontender, no hepatosplenomegaly Musculoskeletal: No acute arthritis in any joint Neurologic: Alert, awake and oriented x3 Psychiatric: A+Ox3, euthymic affect Lymphatic: no cervical or axillary lymphadenopathy Discharge Data Allergies Allergy/AdvReac Type Severity Reaction Status Date / Time No Known Allergies Allergy Unverified 03/26/21 03:06 Consultations 03/26/21 05:51 ED Decision to Admit Stat 03/28/21 09:15 Consult Infectious Diseases Routine Ordered Studies 03/26/21 02:51 CT head/brain wo con Urgent 03/26/21 04:00 CT abd pelvis IV con only Urgent CT abd pelvis IV con only CLINICAL HISTORY: sepsis, elevated LFTs COMPARISON STUDY: None. TECHNIQUE: A dose lowering technique was utilized adhering to the principles of ALARA. CT DOSE: 2486.86 mGy.cm FINDINGS: Lower chest: Few linear densities are seen at dependent portions of bilateral lower lobes and could represent atelectasis or scarring.. Liver: Liver is prominent with diffuse decrease in attenuation of its parenchyma which could represent hepatic steatosis. No focal liver lesions or intrahepatic biliary dilatation is seen Gallbladder: Is surgically absent. Spleen: Normal in size and attenuation. Pancreas: Unremarkable. Adrenal glands: Unremarkable. Kidneys: There is symmetric renal cortical enhancement. The kidneys are normal in size without hydronephrosis.Few small renal cysts are seen within left kidney. Pelvic viscera: Urinary bladder is partially decompressed shows normal appearance. Uterus is surgically absent. Bowel: Bowel loops are nondilated. Appendix is not well seen, probably surgically absent. Diverticulosis of sigmoid colon is seen without evidence of diverticulitis. Peritoneum: There is no intraperitoneal free air or abdominal ascites. Vasculature: The abdominal aorta is normal in course and caliber. Adenopathy: None. Skeletal structures: Mild osteopenia and degenerative changes of the spine. Mild anterolisthesis of L4 on L5. IMPRESSION: 1. Hepatic steatosis. Prominent liver. 2. Nondilated loops of bowel. No acute intra-abdominal process. 3. Diverticulosis without diverticulitis. 4. Status post cholecystectomy and hysterectomy. ACT 112: Negative or not required by law. The above report was generated using voice recognition software. It may contain grammatical, syntax or spelling errors. Electronically signed by: Mala Adame DO 03/26/2021 9:39 AM Dictated: 03/26/21929Transcribed: 03/26/21929 [facility], [id number] XRay Report Patient: MOEJANUARYAdmit Date: 03/26/21MR#: [id number]: [address] RDAcct ID:[id number]: Date: 1955[facility] Zip: [place] [id number]: 66Location: 2SSex: FRoom/Bed: [id number] Phy: Elmo Maxwell M.D.Diagnosis: CONFUSION, SEPSISPri Phy: PCP,NOService Date: 03/26/21Fam Phy:Interpreting Phy: Mala Adame DOAdmit Phy: Elmo Maxwell M.D. Ordering Phy: Alvaro Richards M.D. cc: ~ XR chest 1V portable CLINICAL HISTORY: sepsis COMPARISON STUDY: No previous studies for comparison. FINDINGS: No pneumothorax. No pleural effusion. Reticular opacities are seen at the right lower lung and could represent atelectasis or infiltrates. Cardiomediastinal silhouette is within normal limits in size. Mild pulmonary vascular congestion. Aorta is tortuous.. Osseous structures: Osteopenia. Degenerative changes of bilateral shoulders and spine. IMPRESSION: 1. Atelectasis or infiltrate at the right lower lung. 2. Mild pulmonary vascular congestion. ACT 112: Negative or not required by law. The above report was generated using voice recognition software. It may contain grammatical, syntax or spelling errors. Electronically signed by: Mala Adame DO 03/26/2021 9:30 AM Dictated: 03/26/21928Transcribed: 03/26/21928 CT OF THE HEAD WITHOUT CONTRAST CLINICAL HISTORY: Confusion. COMPARISON STUDY: No previous studies for comparison. CT DOSE: 614.27 mGy.cm TECHNIQUE: Helical axial images of the head were obtained without IV contrast. Automated exposure control was utilized for the study. A dose lowering technique was utilized adhering to the principles of ALARA. FINDINGS: No acute intracranial hemorrhage, midline shift or mass effect is p resent. Ventricular system is normal. Basal cisterns are patent. There are no extra-axial collections. Several white matter hypodensity suggests small vessel disease. There are no findings to suggest acute dural sinus thrombosis or acute territorial infarct. There are no significant calvarial abnormalities. There is a small amount of fluid within the right mastoid air cells. IMPRESSION: No acute intracranial findings. ACT 112: Negative or not required by law. Electronically signed by: Lacho Higginbotham M.D. 03/26/2021 7:38 AM Dictated: 03/26/21735Transcribed: 03/26/21735 Hospital Course (1) Confusion: Was brought by police after found [place] [address] of the head has been negative She was starting on intravenous fluid and intravenous Zosyn and vancomycin for possible infection Blood cx grew anaerobic gram positive cocci Urine cx negative Case discussed with ID that suggested blood cx finding most likely from contamination ID recommended if Echo showed no sign of vegetation and repeat blood cx negative to discontinue abx ECHO showed no evidence of endocarditis or vegetation Abx was discontinued pt remained afebrile and repeat blood cx remained negative Clinically stable (2) Dehydration, moderate: IV fluids as above Received intravenous fluid with electrolyte replacement Potassium remains low and is supplemented Monitor PRP and electrolytes (3) Hypertension: Will discharge on Norvasc. Continue monitor BP (4) Abnormal LFTs: CT notes hepatomegaly and splenomegaly. Differential including diabetes, obesity, hypercholesterolemia, other. No suggestion of acute hepatitis Likely secondary to hepatic steatosis We will monitor LFTs (5) Febrile illness, acute: Unknown etiology Received IV fluid and 4 days of abx Continue continue monitor closely (6) Hepatomegaly: Noted on CT (7) Splenomegaly: Noted on CT We will get PT and OT evaluation Like to be discharged tomorrow or day after We will have [facility] PCP for follow-up at discharge Total Time Total Time Spent Total Time Spent (In Minutes): 35 minutes Discharge Plan Discharge Items Patient Disposition: Home - Self-Care Reason For Visit: CONFUSION, SEPSIS Discharge Diagnosis: Confusion Activity: Resume your previous activity Non-emergency contact: Primary Care Provider Call non-emergency contact if: you have any medication questions and your temperature is above 101 Follow-up/Referrals: PCP,NO [Primary Care Provider] - Diet: Heart Healthy Addtl Attending Provider Instructions: You will need to follow up with your primary care provider ( Office will contact you to schedule for a follow up appointment) Continue monitor your blood pressure and bring your blood pressure log at your next appointment with your provider Seek medical attention if you develop any fever or chills Follow up a low salt diet Your provider will need to monitor your liver enzymes Pending Studies at Discharge: No Stand-Alone Forms: My [facility], Smoking Cessation Medications and DC Order Prescriptions: New amlodipine 5 mg tablet 5 mg PO DAILY Qty: 30 RF: 0 Continued ibuprofen 200 mg Tablet 400 mg PO Q6H PRN (Reason: Pain) RF: 0 Discharge Orders: Discharge Order (Routine); Ordered 03/30/21 Ordered By: Laya Nathan Admission Data Admit Date/Time: 03/26/21 06:37 Attending Provider: Laya Nathan Admit Provider: Elmo Maxwell Primary Care Provider: PCP,NO Other Providers: Elmo Maxwell ; Alanna Colon ; Werner Sharif ; Tiffanie Last ; Jake Pizarro I. ; Krzysztof Gillette II ; Diana Villegas ; Juan Carols Fernandez Other Interventions: Discharge Summary Assessment (RN) Last Done: 03/30/21 16:11
--- NOTE | 2021-05-03 09:28 | Coding Query ---
CODING QUERY To promote full compliance with coding requirements relating to patient care, provider participation is requested in all cases of pilot supervisor uncertainty. Please assist us with the question(s) below: Coding Question(s): Please clarify "Metabolic and colopathy due to UTI" below. This is how it was documented on your progress note. Physician's Response(s): CORRECTED Thank you Jerrod Edmundo Principal Diagnosis: "that condition established after study, to be chiefly responsible for occasioning the admission of the patient to the hospital for care." Co-Existing Principal Diagnosis: "when two or more diagnoses equally meet the criteria for principal diagnosis as determined by the circumstances of admission, diagnostic work up, and/or therapy provided, and the Alphabetic Index, Tabular List, or another coding guideline does not provide sequencing direction, any one of the diagnoses may be sequenced first." "When the physician has documented what appears to be a current diagnosis in the body of the record, but has not included the diagnosis in the final diagnostic statement, the physician should be asked whether the diagnosis should be added." (Source [facility]oding [facility] 2 QTR90. p3-4) [place]
--- NOTE | 2021-05-07 06:33 | Coding Query ---
To promote full compliance with coding requirements relating to patient care, provider participation is requested in all cases of cleaning staff supervisor uncertainty. Please assist us with the question(s) below: Coding Question(s): The diagnosis(es) below was documented in the account. Sepsis/UTI was documented on everything except discharge and Metabolic Encephalopathy was documented on 03/27 progress note then subsequently fell off all further documentation. Please indicate if it is still a possible diagnosis or ruled out. Physician's Response(s): SEPSIS ( ) Diagnosed and POA ( ) Diagnosed and not POA ( x ) Ruled out ( ) Other (please specify) METABOLIC ENCEPHALOPATHY ( x ) Diagnosed and POA ( ) Diagnosed and not POA ( ) Ruled out ( ) Other (please specify) UTI ( ) Diagnosed and POA ( ) Diagnosed and not POA ( x ) Ruled out ( ) Other (please specify) MTDD
== END 2021-03-30 16:45 | disposition home or self-care (01) | DRG 71 ==
LOC: ED 02:28 → SUATTDRO 06:37 → 2S 06:37
DX: R50.9 Fever, unspecified; K76.0 Fatty (change of) liver, not elsewhere classified; Z68.43 Body mass index [BMI] 50.0-59.9, adult; R16.2 Hepatomegaly with splenomegaly, not elsewhere classified; G93.41 Metabolic encephalopathy; R94.5 Abnormal results of liver function studies; E66.01 Morbid (severe) obesity due to excess calories; E86.0 Dehydration